=== PATIENT | female | born 1955 | race Caucasian/White ===

== ENCOUNTER → 2016-10-26 | Outpatient (CLI) | payer BC ==
[~2016-10-26] MED LIST: CALCIUM 600 +1 EAC6 PO; IMITREX100 MG PO; KLONOPIN2 MG PO; LEVOTHROID (S100 MCG PO; LIALDA1.2 GM PO; MECLIZINE HCL25 MG PO; PERCOCET 5-3251 EACH PO; PRILOSEC20 MG PO; PROBIOTIC1 EAC4 PO; RECLAST 55 MG/100 M IV; ULTRAM50 MG PO; XANAX0.5 MG PO; ZOLOFT100 MG PO
== END | disposition disaster alternative care site (69) ==
LOC: GRAD 09:47
DX: R60.0 Localized edema (principal); M86.9 Osteomyelitis, unspecified
CPT/HCPCS: A9503

== ENCOUNTER 2016-10-30 15:00 | Inpatient (IN) | payer BC ==
[~2016-10-30] VITALS: Ht 165.1 cm; Wt 60.7 kg
--- NOTE | ~2016-10-30 | OR ---
PATIENT'S NAME: MICHAEL ANGUIANO [facility] AGE: 61 Y [address] ROOM: [address] [address] LOCATION: G3N ADMIT DATE: 10/31/2016 OR/Procedure Report DISCHARGE DATE: 11/02/2016 FAMILY PHYSICIAN: Buddy Snider MD ATTENDING PHYSICIAN: Ac Jaime SURGEON: Ac Jaime MD PEER TUTOR: DATE OF PROCEDURE: 10/31/2016 ADDENDUM: PREOPERATIVE DIAGNOSIS: Right distal tibia osteomyelitis. POSTOPERATIVE DIAGNOSIS: Right distal tibia osteomyelitis. MD MELITON KULKARNI/modl /[id number] d: 11/15/16 1440 t: 11/16/16 1122, OPERATIVE SUMMARY
--- NOTE | ~2016-10-30 | CON ---
PATIENT'S NAME: MICHAEL ANGUIANO [facility] AGE: 61 Y [address] ROOM: [address] [place], [place] [address] LOCATION: [facility] ADMIT DATE: 10/31/2016 Consultation DISCHARGE DATE: FAMILY PHYSICIAN: Buddy Snider MD ATTENDING PHYSICIAN: STEFAN MAYA DATE OF CONSULTATION: 11/01/2016 REFERRING PHYSICIAN: Buddy Snider MD REASON FOR EVALUATION: Possible tibial osteomyelitis. CHIEF COMPLAINT: The patient states that her leg was hurting. HISTORY OF PRESENT ILLNESS: Ms. Anguiano is a pleasant 61-year-old woman, who has developed some ankle problems for some time. Although she is stating that it started in August, she does note that a friend told her she was complaining about it some even before . In any event, it was getting worse. She notes that the first episode of worsening was after a new stomach agent was added to her in the form of cholestyramine. She stopped this and things did get a little bit better. She was later started on Welchol and again the leg seemed to act up. There was imaging which was possibly positive for infection. She, therefore, underwent a planned biopsy. She underwent this procedure. With bony sampling, it was noted that there was purulent drainage. Cultures were sent. Pathology is pending. She has not had any fevers or chills. She was not on any antibiotics prior to her admission, although she did have an apparent urinary tract infection in mid September and received a week's worth of ciprofloxacin for this. The best that I can calculate, she was off antibiotics for about 19 days prior to the biopsy. She did have a block for her surgery and is not walking around yet. Given the possibility of infection, I am asked to evaluate. She denies having any history of surgery to that leg before. PAST MEDICAL HISTORY: Significant for some thyroid issues, dyslipidemia, some sort of colitis for which she is currently on Lialda. She has not been on any biologic agents. She has been on steroids for this before. FAMILY HISTORY: Positive for cancer, diabetes, heart disease. SOCIAL HISTORY: No history of tobacco use. No history of travel outside of the [place] PATIENT'S NAME: MICHAEL ANGUIANO [facility] AGE: 61 Y [address] ROOM: [address] [place], [place] [address] LOCATION: [facility] ADMIT DATE: 10/31/2016 Consultation DISCHARGE DATE: FAMILY PHYSICIAN: Buddy Snider MD ATTENDING PHYSICIAN: STEFAN MAYA other than a very distant history of travel to [place]. Some alcohol use. REVIEW OF SYSTEMS: Pertinent positives include: GASTROINTESTINAL: The patient with some urgent stooling due to her colitis. MUSCULOSKELETAL: The patient with ankle issues as the patient denies other symptoms. Remainder of a complete review of systems is otherwise negative. PHYSICAL EXAMINATION: GENERAL: The patient lying in bed, in no acute distress. HEENT: The patient is anicteric. Oropharynx is without thrush. CARDIOVASCULAR: Heart is regular rate and rhythm. RESPIRATORY: Breathing is easy and unlabored. Lungs are clear anterolaterally. GASTROINTESTINAL: Abdomen is soft and nontender. Normoactive bowel sounds are present. LYMPHATICS: No cervical lymphadenopathy. MUSCULOSKELETAL: The patient's right ankle and lower leg are wrapped. Left ankle looks fine. Knees look okay. INTEGUMENTARY: The patient's right ankle and lower legs are wrapped. She has no rash. NEUROLOGIC: The patient is awake, alert, and appropriate in conversation. LABORATORY STUDIES: Reviewed in the electronic medical record. RADIOLOGY: There is mention of an MRI, but I do not have that report available to me at this time. There is a bone scan with some nonspecific uptake in the right tibia. ASSESSMENT AND RECOMMENDATIONS: Right tibial osteomyelitis? It would be truly unusual to have an infection in this area without a trauma or previous surgery. In order for infection to be in the bone, it has to get there either by direct seeding or via hematogenously. She would have no good reason for direct seeding. Hematogenously seeding the shaft of the tibia would be statistically improbable, but not impossible. We can await her pathology and cultures. Thus far, the cultures are negative. I think pathology may be more telling here. I will see if AFB and fungal cultures can be added on to the specimen. If this is infection, it has been there for several months and there would be no long-term medical harm to delay therapy while we obtain all data so she if is otherwise ready for home, ID would be okay with this and we can see her in PATIENT'S NAME: SANTA ANGUIANOMAAME Soto [facility] AGE: 61 Y [address] ROOM: [address] [address] LOCATION: [facility] ADMIT DATE: 10/31/2016 Consultation DISCHARGE DATE: FAMILY PHYSICIAN: Buddy Snider MD ATTENDING PHYSICIAN: STEFAN MAYA clinic in followup once pathology is done, etc., and we can then define a plan. Thank you allowing me to participate in the care of Ms. Anguiano. Case discussed with Dr. Snider. MD BREE LEWIS/modl /[id number] d: 11/01/162019 t: 11/02/16 0805, CONSULTATION REPORT
--- NOTE | ~2016-10-30 | OR ---
PATIENT'S NAME: MICHAEL ANGUIANO [facility] AGE: 61 Y [address] ROOM: [place] [address] LOCATION: [facility] ADMIT DATE: 10/31/2016 OR/Procedure Report DISCHARGE DATE: FAMILY PHYSICIAN: Buddy Snider MD ATTENDING PHYSICIAN: STEFAN MAYA SURGEON: Stefan Maya MD RESEARCH ASSOCIATE QUALITY CONTROL QC: Mt Nicholson PA-C. DATE OF PROCEDURE: 10/31/2016 PREOPERATIVE DIAGNOSIS: Right distal tibia osteomyelitis versus malignancy. POSTOPERATIVE DIAGNOSIS: Right distal tibia osteomyelitis versus malignancy. PROCEDURE: 1. Right distal tibia saucerization for osteomyelitis (CPT code: 03887). 2. Irrigation and debridement of right tibia of intramedullary canal. 3. Bone biopsy of right distal tibia. 4. Use of intraoperative fluoroscopy, less than 1 hour. ANESTHESIA: General endotracheal anesthesia with peripheral nerve black. FLUIDS: See anesthesia report. EBL: Minimal. TOURNIQUET: Right proximal thigh at 250 mmHg. SPECIMEN: Right distal tibia bone and cultures. COMPLICATIONS: None. DISPOSITION: Stable in PACU. COUNTS: All counts correct. INDICATIONS: Ms. Anguiano is a pleasant 61-year-old female, who underwent the procedure above. The risks, benefits, and alternatives of surgical events were discussed with the patient in detail. She elected to proceed with surgery. Informed consent was obtained. Anesthesia was consulted for perioperative evaluation of the patient. I marked the right lower indicating correct surgical site. OPERATIVE REPORT IN DETAIL: The patient was brought from the holding area to the operating room. A time-out was performed. General endotracheal anesthesia was administered. The anesthesia team performed peripheral nerve PATIENT'S NAME: MICHAEL ANGUIANO [facility] AGE: 61 Y [address] ROOM: [place] [address] LOCATION: [facility] ADMIT DATE: 10/31/2016 OR/Procedure Report DISCHARGE DATE: FAMILY PHYSICIAN: Buddy Snider MD ATTENDING PHYSICIAN: STEFAN MAYA block in the holding area. The patient placed supine on the operating room table. The right lower extremity was then prepped and draped in the sterile fashion. An Esmarch was used to exsanguinate the limb. The tourniquet was inflated to 250 mmHg. I turned my attention to the distal tibia. I introduced intraoperative fluoroscopy. Based upon the MRI, 5 cm proximal to the ankle joint line was the focus of concern of the distal tibia. I subsequently measured this fluoroscopically. I then made a 5 cm longitudinal skin incision through skin and subcutaneous tissue down to bone. I removed the periosteum of the distal tibia. I used a six two K-wire on power to fill holes in series to remove a wedge of bone to access the intramedullary canal of the distal tibia. This bone was sent for specimen. Upon opening the canal, there was evidence of purulent material that was then cultured. I used a curette to curette the area and specimen was also sent to the lab. Using a pulsatile lavage, I irrigated the intramedullary canal. The wound was closed in layer beginning with periosteum, I used 2-0 nylon suture to approximate it, followed by 2-0 nylon suture to approximate the superficial subcutaneous tissue, followed by 2-0 nylon suture to approximate the skin in interrupted horizontal mattress fashion. The tourniquet was then let down. Sterile dressings were placed in the form of Xeroform, 4x4, Webril, and Elroy bandage. The tourniquet was then let down. The patient was then transferred from the operating room table on to the stretcher and extubated. She was brought to the recovery room stable condition. Of note, my PA, Mt Nicholson PA-C, played an integral role in the intraoperative care of this patient. This included preoperative positioning, intraoperative expert retraction, and closing and dressing functions. IMPRESSION: The patient is status post the noted procedures above. PLAN: The patient will be weightbearing as tolerated on the right lower extremity. We will keep the dressings clean, dry, and intact. We will follow up her intraoperative cultures. Antibiotics were administered. After the bone biopsy and cultures were taken. A final fluoroscopic images were saved. Primary care doctor will be consulted for management of her medical comorbidities. We will continue to follow her cultures and biopsy specimen of the tibia closely while she is admitted. PATIENT'S NAME: MICHAEL ANGUIANO [facility] AGE: 61 Y [address] ROOM: [address] [address] LOCATION: [facility] ADMIT DATE: 10/31/2016 OR/Procedure Report DISCHARGE DATE: FAMILY PHYSICIAN: Buddy Snider MD ATTENDING PHYSICIAN: STEFAN MAYA MD SARA KULKARNID/modl /[id number] d: 10/31/16 1348 t: 11/01/16 1147, OPERATIVE SUMMARY
--- NOTE | ~2016-10-30 | DS ---
PATIENT'S NAME: MICHAEL ANGUIANO [facility] AGE: 61 Y [address] ROOM: [address] [place], [place] [address] LOCATION: G3N ADMIT DATE: 10/31/2016 Discharge Summary DISCHARGE DATE: 11/02/2016 FAMILY PHYSICIAN: Buddy Snider MD ATTENDING PHYSICIAN: Ac Jaime ADMITTING DIAGNOSIS: Right distal tibia osteomyelitis versus malignancy. DISCHARGE DIAGNOSIS: Right distal tibia osteomyelitis versus malignancy. SECONDARY DIAGNOSES: Anxiety, depression, hyperlipidemia, hypothyroidism, irritable bowel syndrome, osteoporosis, peptic ulcer disease, and microscopic colitis. CONSULTATIONS: Hospital Service for medical management and Infectious Disease for possible osteomyelitis. PROCEDURE: The patient underwent the following procedure on October 31, 2016, 1. Right distal tibia saucerization of osteomyelitis. 2. Irrigation and debridement of right tibia of intramedullary canal. 3. Bone biopsy of right distal tibia. HISTORY OF PRESENT ILLNESS: This is a 61-year-old female patient, who had been seen by her primary care physician with complaints of right ankle swelling. He initially thought that the patient might have a rheumatic disorder and was referred to a news director for evaluation. The news director, Dr. Anguiano ordered a series of tests that ultimately found a bony abnormality in her right distal tibia that was suggestive of a osteomyelitis. The patient had both a bone scan and MRI of the area. The patient was seen by Dr. Jaime in the office who recommended an open biopsy with irrigation and debridement of the area for bone cultures before antibiotics were started. HOSPITAL COURSE: The patient was admitted on October 31, 2016. She did undergo the above-described procedure and tolerated the procedure well. She was admitted for inpatient status, where she was placed on IV antibiotics postoperative in the form of Ancef until she could be seen by Infectious Disease. The patient was kept under adequate pain control during her admission. The patient was weightbearing as tolerated during admission. Cultures at the time of discharge were negative for any growth, and the patient was determined to be stable for discharge on November 02, 2016. DISCHARGE INSTRUCTIONS: The patient is to follow up with Dr. Jaime on November 16, 2016, at 8:30 a.m. She is to follow up with Infectious Disease doctor on November 09 at 9:30 a.m. She is to be weightbearing as tolerated. She has no restrictions on her diet. She is to keep her dressing to right PATIENT'S NAME: MICHAEL ANGUIANO [facility] AGE: 61 Y [address] ROOM: [address] [address] LOCATION: [facility] ADMIT DATE: 10/31/2016 Discharge Summary DISCHARGE DATE: 11/02/2016 FAMILY PHYSICIAN: Buddy Snider MD ATTENDING PHYSICIAN: Ac Jaime lower extremity clean and dry. She may cover it to take a shower. New medications, Percocet 5/325 mg 1 tablet every 6 hours as needed for pain. The patient is to hold her Ultram while she is taking the Percocet. Otherwise, the patient is to continue with her preadmission medications as instructed by her internal medicine doctor. The patient's discharge status was good. JOSE MARTIN DOMINGUEZ PA-C FOR MD DARLENE KULKARNI/stacy /[id number] d: 11/07/16 0759 t: 11/20/16 0917, DISCHARGE SUMMARY
[2016-10-30] MEDS ORDERED: LEVOTHROID (S100 MCG PO (15:33)
[2016-10-30] MEDS ORDERED: ZOLOFT100 MG PO (15:34)
[2016-10-30] MEDS ORDERED: PRILOSEC20 MG PO (15:35)
[2016-10-30] MEDS ORDERED: LIALDA1.2 GM PO (15:35)
[2016-10-30] MEDS ORDERED: KLONOPIN2 MG PO (15:36)
[2016-10-30] MEDS ORDERED: XANAX0.5 MG PO (15:37)
[2016-10-30] MEDS ORDERED: MECLIZINE HCL25 MG PO (15:38)
[2016-10-30] MEDS ORDERED: RECLAST 55 MG/100 M IV (15:39)
[2016-10-30] MEDS ORDERED: ULTRAM50 MG PO (15:39)
[2016-10-31 09:19] LABS: BASOPHIL # 0.1 K/uL (0.0-0.2); BASOPHIL % 1.8 %; EOSINOPHIL # 0.2 K/uL (0.0-0.5); EOSINOPHIL % 3.8 %; HEMATOCRIT 41.7 % (33.0-46.0); HEMOGLOBIN 13.1 g/dL (10.0-15.0); IMMATURE GRANULOCYTE % 0.3 %; LYMPHOCYTE # 2.4 K/uL (0.8-4.0); LYMPHOCYTE % 37.8 %; MCH 29.5 pg (27.0-34.0); MCHC 31.4 gm/dL (32.0-36.5); MCV 93.9 fl (83.0-98.0); MONOCYTE # 0.5 K/uL (0.0-1.0); MONOCYTE % 8.5 %; MPV 11.5 fl (9.4-12.4); NEUTROPHIL % 47.8 %; NRBC % 0 /100WBC (0-0.00); PLATELET COUNT 237 K/uL (150-450); RBC 4.44 M/uL (3.50-5.50); RDW-CV 13.9 % (11.9-14.6); WBC 6.3 K/uL (4.0-11.0)
[2016-10-31] MEDS ORDERED: IMITREX100 MG PO (13:38)
--- NOTE | 2016-10-31 18:08 | NUR ---
Significant Event: From PACU at 1250. Dressing C/D?I. CSM-tingling to toes/foot. Up to bedside commode with one assist, walker, and gaitbelt. Percocet 1 tab last at 1635. Follow up:
--- NOTE | 2016-11-01 03:43 | NUR ---
Shift Summary: Patient still blocked to right lower leg. Has feeling to right below the knee then total numbness. She is able to use walker and NWB to right leg to go to the bathroom. Has not had any pain medication this shift. Tolerating regular diet well. Voiding without difficulty.
[2016-11-01 05:31] LABS: BASOPHIL # 0.1 K/uL (0.0-0.2); BASOPHIL % 0.6 %; EOSINOPHIL % 0.1 %; HEMATOCRIT 39.1 % (33.0-46.0); HEMOGLOBIN 12.4 g/dL (10.0-15.0); IMMATURE GRANULOCYTE % 0.4 %; LYMPHOCYTE # 1.9 K/uL (0.8-4.0); LYMPHOCYTE % 18.4 %; MCH 29.6 pg (27.0-34.0); MCHC 31.7 gm/dL (32.0-36.5); MCV 93.3 fl (83.0-98.0); MONOCYTE # 0.8 K/uL (0.0-1.0); MONOCYTE % 7.3 %; NEUTROPHIL # (ANC) 7.5 K/uL (1.8-7.8); NEUTROPHIL % 73.2 %; NRBC % 0 /100WBC (0-0.00); PLATELET COUNT 220 K/uL (150-450); RBC 4.19 M/uL (3.50-5.50); WBC 10.2 K/uL (4.0-11.0)
--- NOTE | 2016-11-01 16:30 | NUR ---
SPOKE TO PATIENT REGARDING CM AND OUR ROLE. PATIENT LIVES IN OWN HOME WITH SPOUSE AND IS PLANNING ON RETURNING THERE ONCE SHE IS READY FOR DISCHARGE. PATIENT DOES NOT ANTICPATE ANY DISCHARGE NEEDS. SHE TELLS ME THAT SHE DOES NOT THINK SHE WILL NEED A FRONT WHEELED WALKER SHE HAS BEEN WALKING IN HER ROOM WITHOUT IT. I ENCOURAGED HER THAT FOR SAFTEY AT HOME SHE MAY NEED ONE FOR A SHORT TIME. I GAVE HER LIST OF DME PLACES TO GET A WALKER. WILL CONT TO FOLLOW NEEDED.
--- NOTE | 2016-11-01 17:09 | NUR ---
Significant Event: Pt AOx3. VSS, CSM dull to right lower extremity. Was numb until 1100 this am. Up with SBA, walker and gait belt. Steady gait and encourage WB through the right leg. IV intact to right wrist. Pain controlled with PRN Percocet and Some. Voids without difficulty, passing flatus. Good oral intake. Possible discharge tomorrow. Follow up:
--- NOTE | 2016-11-02 03:22 | NUR ---
Significant Event: PATIENT ALERT AND ORIENTED X 3. VSS. TAKING PO AND VOIDING WITHOUT DIFFICULTY. UP WITH SBA, GAITBELT AND WALKER - GAIT STEADY. GEORGE WRAP DRESSING TO RIGHT LOWER LEG C/D/I. PAIN WELL CONTROLLED WITH PERCOCET LAST AT 0500. CSM'S TO RIGHT LOWER LEG WNL. SALINE LOCK PATENT TO RIGHT WRIST. PLEASANT AND COOPERTIVE WITH CARES. POSSIBLE D/C TO HOME TODAY. Follow up:
[2016-11-02] MEDS ORDERED: PERCOCET 5-3251 EACH PO (09:16)
--- NOTE | 2016-11-02 15:24 | NUR ---
Discharge instructions explained to patient; reviewed care of dressing, s/s infections, all medications, dvt prevention, s/s infection, when to call the doctor, f/u appt, etc. Refer to discharge instructions for more details. All belongings sent with patient. to front door per w/c.
[2016-12-02] MEDS ORDERED: CALCIUM 600 +1 EAC6 PO (08:53)
[2016-12-02] MEDS ORDERED: PROBIOTIC1 EAC4 PO (08:54)
== END 2016-11-02 11:25 | disposition disaster alternative care site (69) | DRG 479 ==
LOC: G3N 10-31 08:31
PROVIDERS: ADMIT Orthopaedic Surgery Adult Reconstructive Orthopaedic Surgery
PROC: 0JDN0ZZ Extraction of Right Lower Leg Subcutaneous Tissue and Fascia, Open Approach (ICD-10-PCS; principal; 2016-10-31)
PROC: 0QBG0ZX Excision of Right Tibia, Open Approach, Diagnostic (ICD-10-PCS; principal; 2016-10-31)
DX: M86.8X6 Other osteomyelitis, lower leg (principal); K27.9 Peptic ulcer, site unspecified, unspecified as acute or chronic, without hemorrhage or perforation; E78.5 Hyperlipidemia, unspecified; E03.9 Hypothyroidism, unspecified; M81.0 Age-related osteoporosis without current pathological fracture; K58.9 Irritable bowel syndrome, unspecified; F41.9 Anxiety disorder, unspecified; F32.9 Major depressive disorder, single episode, unspecified; G43.909 Migraine, unspecified, not intractable, without status migrainosus
CPT/HCPCS: J0690; J1100; J2250; J2270; J2405; J7120

== ENCOUNTER 2016-11-30 18:01 | Emergency (ER) | payer BC ==
--- NOTE | ~2016-11-30 | ER ---
PATIENT'S NAME: MICHAEL ANGUIANO [facility] AGE: 61 Y [address] ROOM: [place] [address] LOCATION: ED ADMIT DATE: 11/30/2016 ER/Outpatient Report DISCHARGE DATE: 11/30/2016 FAMILY PHYSICIAN: Buddy Snider MD ATTENDING PHYSICIAN: Ciaran Mendez Time of Patient Arrival: 1801 hours. Time of Patient Evaluation: 1815 hours. CHIEF COMPLAINT: Swollen pain post tib-fib surgery one month ago. HISTORY OF PRESENT ILLNESS: This is a 61-year-old female who presents to the ER, who states that she has osteomyelitis in her right tib-fib area. She states that she has been following along with Dr. Jaime and with infection control. Dr. Jaime did open up her leg and removed the infection, and then she has been seeing the infection control doctor for antibiotic. She states she does have a PICC line in place and has been receiving daptomycin infusions two days on, one day off at the [facility] since surgery has been done. She states ever since surgery, she has been running some low-grade fevers occasionally and now she has developed some aches in her joints. She states her myalgias have been worse in the last two days. She has also noticed some increased swelling and tenderness around her incision site. She has not noticed any redness to the area. She did call her infectious control doctor and he told her to follow up with her primary care physician. She states that she tried to go over to [facility], and they told her that she should just come to the emergency room. She states that she then called Dr. Jaime' office and they also told her to come to the emergency room. The patient denies any upper respiratory infections. No shortness of breath, chest pain, or any other abnormality at this time. ALLERGIES: CODEINE. MEDICATIONS: Please see medication list in nurse's notes. PAST MEDICAL HISTORY: 1. Chronic steroid consumption. 2. Colitis. 3. Osteomyelitis. PAST SURGICAL HISTORY: 1. Sinus surgery. PATIENT'S NAME: MICHAEL ANGUIANO [facility] AGE: 61 Y [address] ROOM: [place] [address] LOCATION: ED ADMIT DATE: 11/30/2016 ER/Outpatient Report DISCHARGE DATE: 11/30/2016 FAMILY PHYSICIAN: Buddy Snider MD ATTENDING PHYSICIAN: Ciaran Mendez 2. Right leg surgery. 3. Hysterectomy. SOCIAL HISTORY: She drinks an occasional beer. Denies any smoking use. REVIEW OF SYSTEMS: A 10-point review of systems was completed and was negative with the exception of those discussed in the HPI. PHYSICAL EXAMINATION: VITAL SIGNS: Height 5 feet 4 inches, stated; weight 65.2 kg, taken; blood pressure is 104/57; pulse 88; respirations 16; temperature 98.7 degrees, tympanically; and saturation is 97% on room air. Gardenia Coma Score is 15. GENERAL: Alert, calm, well-developed female, in no acute distress. HEENT: Head; normocephalic. She does display moist mucous membranes. LUNGS: Clear to auscultation bilaterally. No wheezes or crackles. Normal respiratory effort. HEART: Regular rate and rhythm. EXTREMITIES: No clubbing or cyanosis. She does have a healed incision on the anterior aspect of her lower tib-fib area. There is some slight swelling noted to that area and is tender with palpation over that area. There is no erythema, no edema. She has good pedal pulses. Full range of motion in all other limbs. NEUROLOGIC: Cranial nerves 2 through 12 grossly intact. Gait is steady with a slight limp. LABORATORY DATA: CBC: White count of 5.6, hemoglobin is 12.3, and platelets of 266,000. Sedimentation rate is 29. CRP is 1.06. CMS was unremarkable. Procalcitonin is less than 0.05. Lactate is 1.3. CPK is 154. IMPRESSION: 1. Postoperative pain, tenderness, and swelling to the right anterior tib- fib. 2. Myalgias. 3. History of osteomyelitis, currently receiving daptomycin antibiotic therapy. ASSESSMENT AND PLAN: I did call [facility] and spoke with Dr. Pozo, who is on-call for her primary care physician, Dr. Snider and Dr. Pozo would like me to contact the Orthopedic doctor. I, therefore, called Dr. Nicholson, who is on-call for Dr. Jaime and discussed the patient's care with him. He recommended that I try to get a hold of Dr. Jaime, so I did do that and Dr. Jaime states that PATIENT'S NAME: MICHAEL ANGUIANO [facility] AGE: 61 Y [address] ROOM: [place] [address] LOCATION: ED ADMIT DATE: 11/30/2016 ER/Outpatient Report DISCHARGE DATE: 11/30/2016 FAMILY PHYSICIAN: Buddy Snider MD ATTENDING PHYSICIAN: Ciaran Mendez he does not feel like she needs any further imaging and that he can follow her up in the clinic in the next few days, if she is needing. I advised the patient that she needs to follow up with either her primary care physician or an infectious control doctor to see about possibly changing her antibiotic due to the side affects and her myalgias. The patient was directed to call her primary care physician tomorrow to see if she needs to be into the clinic to be seen or if they could make those changes without her being seen. The patient understands and agrees with care. RAKESH BERNSTEIN PA-C FOR MD MICHELLE PATINO/stacy /[id number] d: 12/01/164 t: 12/12/16 173, OUTPATIENT REPORT
[~2016-11-30 18:01] MED LIST changes: -CALCIUM 600 +1 EAC6 PO; -PROBIOTIC1 EAC4 PO
[2016-11-30 19:20] LABS: BASOPHIL # 0.1 K/uL (0.0-0.2); BASOPHIL % 1.6 %; EOSINOPHIL # 0.3 K/uL (0.0-0.5); EOSINOPHIL % 6.1 %; HEMATOCRIT 37.8 % (33.0-46.0); HEMOGLOBIN 12.3 g/dL (10.0-15.0); IMMATURE GRANULOCYTE % 0.4 %; LYMPHOCYTE % 36.1 %; MCH 29.5 pg (27.0-34.0); MCHC 32.5 gm/dL (32.0-36.5); MCV 90.6 fl (83.0-98.0); MONOCYTE # 0.6 K/uL (0.0-1.0); MPV 11.3 fl (9.4-12.4); NEUTROPHIL # (ANC) 2.6 K/uL (1.8-7.8); NEUTROPHIL % 45.8 %; NRBC % 0 /100WBC (0-0.00); PLATELET COUNT 226 K/uL (150-450); RBC 4.17 M/uL (3.50-5.50); RDW-CV 13.7 % (11.9-14.6); WBC 5.6 K/uL (4.0-11.0)
[2016-11-30 19:37] LABS: ALBUMIN 3.2 gm/dL (3.5-5.0); ALK PHOS 87 IU/L (33-138); ALT 22 IU/L (12-78); ANION GAP 11.8 (10.0-19.0); AST 25 IU/L (10-40); BLOOD UREA NITROGEN 8 mg/dL (6-24); CALCIUM 8.3 mg/dL (8.5-10.5); CHLORIDE 109 mMol/L (96-110); CO2 26 mMol/L (22-32); CREATININE 0.7 mg/dL (0.5-1.1); ESTIMATED GFR (MDRD EQUATION) > 60; POTASSIUM 3.8 mMol/L (3.7-5.1); SODIUM 143 mMol/L (135-145); TOTAL BILIRUBIN 0.2 mg/dL (0.0-1.5); TOTAL PROTEIN 6.5 g/dL (6.0-8.4)
[2016-12-02] MEDS ORDERED: CALCIUM 600 +1 EAC6 PO (08:53)
[2016-12-02] MEDS ORDERED: PROBIOTIC1 EAC4 PO (08:54)
== END 2016-11-30 20:28 | disposition disaster alternative care site (69) ==
LOC: GMED 18:01
PROVIDERS: Emergency Medicine
DX: G89.18 Other acute postprocedural pain (principal); M79.661 Pain in right lower leg; M79.89 Other specified soft tissue disorders; M79.1 Myalgia; M86.9 Osteomyelitis, unspecified; K52.9 Noninfective gastroenteritis and colitis, unspecified; Z90.710 Acquired absence of both cervix and uterus; Z98.890 Other specified postprocedural states; Z79.52 Long term (current) use of systemic steroids; Z79.899 Other long term (current) drug therapy; Z88.5 Allergy status to narcotic agent

== ENCOUNTER 2016-12-09 09:56 | Emergency (ER) | payer BC ==
--- NOTE | ~2016-12-09 | ER ---
PATIENT'S NAME: MICHAEL ANGUIANO [facility] AGE: 61 Y [address] ROOM: [place] [address] LOCATION: [facility] ADMIT DATE: 12/09/2016 ER/Outpatient Report DISCHARGE DATE: 12/09/2016 FAMILY PHYSICIAN: Buddy Snider MD ATTENDING PHYSICIAN: Zenon Sethi Time of Arrival: 0956 hours. Time of Evaluation: 1010 hours. CHIEF COMPLAINT: Pain. HISTORY OF PRESENT ILLNESS: The patient is a 61-year-old female who presents to the emergency department today with chief complaint of pain. She reports she has pain everywhere. The patient reports that she has had generalized body aches with the worst pain being in her knees. She believes it is from her daptomycin infusion. She reports she had similar symptoms a couple of weeks ago, had to come in while she was on daptomycin and they had changed her to vancomycin, but then developed some colitis, so they changed her back to some daptomycin and she has once again developed these generalized body aches all over, worse in her knees. She reports sharp pain, it is worse with movement. Denies any fevers or chills. No nausea or vomiting. No diarrhea or constipation. She does have some occasional leakage that has been going on for quite some time. She does report that she sees Dr. Jaime as he did take care of the distal tib- fib. PAST MEDICAL HISTORY: Colitis, right leg bone infection, and chronic steroid consumption. PAST SURGICAL HISTORY: Sinus surgery, right leg surgery, and hysterectomy. SOCIAL HISTORY: The patient denies any tobacco use. Reports occasional alcohol use. Denies any illicit drug use. ALLERGIES: TO CODEINE. MEDICATIONS: Percocet. Please see list. PRIMARY CARE DOCTOR: Buddy Snider MD. PATIENT'S NAME: MICHAEL ANGUIANO [facility] AGE: 61 Y [address] ROOM: [place] [address] LOCATION: [facility] ADMIT DATE: 12/09/2016 ER/Outpatient Report DISCHARGE DATE: 12/09/2016 FAMILY PHYSICIAN: Buddy Snider MD ATTENDING PHYSICIAN: Zenon Sethi REVIEW OF SYSTEMS: All systems are reviewed by myself and are negative with the exception of those discussed in HPI and past medical history. PHYSICAL EXAMINATION: VITAL SIGNS: Weight 66 kg. Blood pressure 140/67, pulse 90, respiratory rate 16, temperature 98.2, and oxygen saturation 96% on room air. GENERAL: The patient is a 61-year-old female who appears stated age, in no acute distress at this time. HEENT: Normocephalic, atraumatic. Pupils are equal, round, and reactive to light. Oropharynx is clear. NECK: Supple. There is no nuchal rigidity. CARDIOVASCULAR: Regular rate and rhythm. No murmurs, rubs, or gallops. LUNGS: Clear to auscultation bilaterally. No wheezes, rales, or rhonchi. ABDOMEN: Soft, nontender, and nondistended. No rebound, rigidity, or guarding. MUSCULOSKELETAL: The patient moves all 4 extremities. She is able to ambulate with steady gait back to the room. SKIN: Warm and dry. There are no rashes or lesions noted. LABORATORY DATA AND X-RAYS: CBC is normal. Lactate is normal. CMP is normal. LFTs are normal. CK is normal. CRP is 1.37 which is stable. ESR is 38 which is stable as well from a week ago. IMPRESSION: 1. Acute pain and myalgias, likely secondary to daptomycin. 2. Initial visit. EMERGENCY DEPARTMENT COURSE: The patient was brought back to the examination room. Seen and evaluated by myself. IV is established. Laboratory analysis is obtained as described above. The patient is given Dilaudid pain medicine IV with improvement in the patient's symptoms. The workup is essentially unremarkable. I did contact Dr. Jaime with Orthopedic Surgery and discussed the results with him. He does feel that the patient will be okay not taking the daptomycin until we can discuss the case with Infectious Disease on Sunday. I have discussed with the patient taking 1/2 tab of her pain medicine q.6 hours p.r.n. pain with sedation warning. I have discussed return to care instructions including worsening symptoms or any other concerns to return to the emergency department as soon as possible. The patient is agreeable without further questions at this time. DISPOSITION: PATIENT'S NAME: MICHAEL ANGUIANO [facility] AGE: 61 Y [address] ROOM: [place] [address] LOCATION: [facility] ADMIT DATE: 12/09/2016 ER/Outpatient Report DISCHARGE DATE: 12/09/2016 FAMILY PHYSICIAN: Buddy Snider MD ATTENDING PHYSICIAN: Zenon Sethi The patient is discharged home in good condition. DO MAHNAZ SOSA/modl /[id number] d: 12/09/162056 t: 12/10/16 0611, OUTPATIENT REPORT
[~2016-12-09 09:56] MED LIST changes: +CALCIUM 600 +1 EAC6 PO; +PROBIOTIC1 EAC4 PO
[2016-12-09 10:40] LABS: BASOPHIL # 0.1 K/uL (0.0-0.2); BASOPHIL % 1.4 %; EOSINOPHIL # 0.4 K/uL (0.0-0.5); EOSINOPHIL % 6.5 %; HEMATOCRIT 34.9 % (33.0-46.0); HEMOGLOBIN 11.2 g/dL (10.0-15.0); IMMATURE GRANULOCYTE % 0.2 %; LYMPHOCYTE # 1.7 K/uL (0.8-4.0); LYMPHOCYTE % 29.9 %; MCH 29.2 pg (27.0-34.0); MCHC 32.1 gm/dL (32.0-36.5); MCV 90.9 fl (83.0-98.0); MONOCYTE # 0.6 K/uL (0.0-1.0); MONOCYTE % 10.2 %; MPV 11.2 fl (9.4-12.4); NEUTROPHIL # (ANC) 2.9 K/uL (1.8-7.8); NEUTROPHIL % 51.8 %; NRBC % 0 /100WBC (0-0.00); PLATELET COUNT 229 K/uL (150-450); RBC 3.84 M/uL (3.50-5.50); RDW-CV 13.8 % (11.9-14.6); WBC 5.6 K/uL (4.0-11.0)
[2016-12-09 10:59] LABS: ALBUMIN 3.1 gm/dL (3.5-5.0); ALK PHOS 80 IU/L (33-138); ALT 20 IU/L (12-78); ANION GAP 10.8 (10.0-19.0); AST 23 IU/L (10-40); BLOOD UREA NITROGEN 12 mg/dL (6-24); CALCIUM 8.1 mg/dL (8.5-10.5); CHLORIDE 110 mMol/L (96-110); CO2 26 mMol/L (22-32); CPK 144 IU/L (21-215); CREATININE 0.7 mg/dL (0.5-1.1); ESTIMATED GFR (MDRD EQUATION) > 60; POTASSIUM 3.8 mMol/L (3.7-5.1); SODIUM 143 mMol/L (135-145); TOTAL BILIRUBIN 0.2 mg/dL (0.0-1.5); TOTAL PROTEIN 6.2 g/dL (6.0-8.4)
== END 2016-12-09 12:15 | disposition disaster alternative care site (69) ==
LOC: GMED 09:56
PROVIDERS: Emergency Medicine
DX: M79.1 Myalgia (principal); Z90.710 Acquired absence of both cervix and uterus; Z88.5 Allergy status to narcotic agent
CPT/HCPCS: J1170

== ENCOUNTER 2016-12-30 21:49 | Emergency (ER) | payer BC ==
--- NOTE | ~2016-12-30 | ER ---
PATIENT'S NAME: MICHAEL ANGUIANO [facility] AGE: 61 Y [address] ROOM: [place] [address] LOCATION: [facility] ADMIT DATE: 12/30/2016 ER/Outpatient Report DISCHARGE DATE: 12/30/2016 FAMILY PHYSICIAN: Buddy Snider MD ATTENDING PHYSICIAN: Diomedes Chandler TIME OF ARRIVAL: 2150 hours. TIME OF EXAM: 2150 hours. CHIEF COMPLAINT: Fall. HISTORY OF PRESENT ILLNESS: The patient states just prior to arrival she tripped over a plant in her driveway while she was walking backwards. She states she fell on her butt and then fell back onto her left wrist in the grass. She states she is not able to stand up because of the pain between her legs and has pain in the left wrist area. She arrived per EMS. They initiated an IV and gave her a total of 100 mcg of fentanyl. ALLERGIES: CODEINE. CURRENT MEDICATIONS: Current medications are on her chart and were reviewed by me. PAST MEDICAL HISTORY: Osteomyelitis, colitis, hypothyroidism, and anxiety. PAST SURGERIES: Sinus surgery, hysterectomy. In October of 2016, she had osteomyelitis of the right tib-fib that was debrided by Dr. Jaime. SOCIAL HISTORY: She denies the use of tobacco, drugs, or alcohol. Her [id number] is here with her tonight. REVIEW OF SYSTEMS: All negative other than those mentioned in the HPI. PHYSICAL EXAMINATION: VITAL SIGNS: She weighed 67.5 kg. Blood pressure is 136/62, pulse of 107, PATIENT'S NAME: MICHAEL ANGUIANO [facility] AGE: 61 Y [address] ROOM: [place] [address] LOCATION: [facility] ADMIT DATE: 12/30/2016 ER/Outpatient Report DISCHARGE DATE: 12/30/2016 FAMILY PHYSICIAN: Buddy Snider MD ATTENDING PHYSICIAN: Diomedes Chandler respirations 16, temp of 99.3, tympanic, and O2 sat is 98% on room air. GENERAL: She is awake, alert, and oriented x4. SKIN: [place], warm, and dry. RESPIRATIONS: Even and nonlabored. LUNGS: Lung sounds are clear throughout. HEART: Regular rate and rhythm. She has strong pedal pulses. EXTREMITIES: She is tender in the left wrist, she has some swelling, strong radial and ulnar pulses, she is able to wiggle her fingers, it is tender to touch her fingers, and then she complains of pain between her legs, she says it hurts up into the vaginal area due to the fall on her butt. Able to move her legs but tender in pelvis. PELVIS: No pain with pelvic pressure. LABORATORY DATA: X-ray of the wrist and pelvis were completed and reviewed with Dr. Chandler. Pelvis shows no bony abnormality. Her left wrist shows an extraarticular nondisplaced distal left radius fracture. It was splinted with a short-arm splint. EMERGENCY DEPARTMENT COURSE: The patient was given fentanyl 50 mcg IV. She was then assisted to a sitting position, which she tolerated well. A sling was applied to the left arm. She was then assisted in standing and able to take a few steps without increased pain. She was given Percocet 5/325 x2 tabs orally. IMPRESSION: Fractured left wrist, contusion of the pelvis. PLAN: Home, rest, leave the splint on, wear the sling as needed for support, the patient states she has Percocet at home to take as needed for pain, ice to the wrist area tonight. She states she is scheduled to see Dr. Jaime on Sunday already to follow up for the tib-fib osteomyelitis. Encouraged her to keep that appointment to have her wrist rechecked. She verbalized understanding. PATSY KRAUSE APRN FOR MD GRETA FRENCH/stacy /[id number] d: 12/31/16 0020 t: 01/09/17 1826, OUTPATIENT REPORT
== END 2016-12-30 22:57 | disposition disaster alternative care site (69) ==
LOC: GACC 21:49
PROC: 2W3FX1Z Immobilization of Left Hand using Splint (ICD-10-PCS; principal; 2016-12-30)
DX: S52.532A Colles' fracture of left radius, initial encounter for closed fracture (principal); S30.0XXA Contusion of lower back and pelvis, initial encounter; E03.9 Hypothyroidism, unspecified; F41.9 Anxiety disorder, unspecified; Z88.5 Allergy status to narcotic agent; Z90.710 Acquired absence of both cervix and uterus; W01.0XXA Fall on same level from slipping, tripping and stumbling without subsequent striking against object, initial encounter; Y93.89 Activity, other specified; Y92.89 Other specified places as the place of occurrence of the external cause
CPT/HCPCS: J3010

== ENCOUNTER → 2016-12-30 | Outpatient (CLI) | payer BC | END | disposition disaster alternative care site (69) | LOC: GAMB 21:35 | DX: S69.90XA Unspecified injury of unspecified wrist, hand and finger(s), initial encounter (principal); M25.532 Pain in left wrist; A41.9 Sepsis, unspecified organism; M89.8X8 Other specified disorders of bone, other site | CPT/HCPCS: A0425; A0427; J3010 ==

== ENCOUNTER → 2017-01-02 | Outpatient (CLI) | payer BC | END | disposition disaster alternative care site (69) | LOC: GRAD 09:30 | DX: R10.2 Pelvic and perineal pain (principal); S32.10XD Unspecified fracture of sacrum, subsequent encounter for fracture with routine healing; X58.XXXD Exposure to other specified factors, subsequent encounter ==

== ENCOUNTER → 2017-01-22 | Outpatient (CLI) | payer BC ==
[2017-01-22 14:01] LABS: BASOPHIL # 0.1 K/uL (0.0-0.2); BASOPHIL % 1.3 %; EOSINOPHIL # 0.3 K/uL (0.0-0.5); EOSINOPHIL % 4.7 %; HEMATOCRIT 38.4 % (33.0-46.0); HEMOGLOBIN 12.2 g/dL (10.0-15.0); IMMATURE GRANULOCYTE % 0.2 %; LYMPHOCYTE # 2.1 K/uL (0.8-4.0); LYMPHOCYTE % 33.1 %; MCH 29.4 pg (27.0-34.0); MCHC 31.8 gm/dL (32.0-36.5); MCV 92.5 fl (83.0-98.0); MONOCYTE # 0.6 K/uL (0.0-1.0); MONOCYTE % 8.8 %; MPV 10.8 fl (9.4-12.4); NEUTROPHIL # (ANC) 3.3 K/uL (1.8-7.8); NEUTROPHIL % 51.9 %; NRBC % 0 /100WBC (0-0.00); PLATELET COUNT 262 K/uL (150-450); RBC 4.15 M/uL (3.50-5.50); RDW-CV 14.1 % (11.9-14.6); WBC 6.3 K/uL (4.0-11.0)
== END | disposition disaster alternative care site (69) ==
LOC: GRAD 13:30
PROVIDERS: Orthopaedic Surgery
DX: S32.10XD Unspecified fracture of sacrum, subsequent encounter for fracture with routine healing (principal); W19.XXXA Unspecified fall, initial encounter